=== PATIENT | female | born 1950 | race Caucasian/White ===

== ENCOUNTER 2018-05-13 07:24 | Emergency (ER) | payer OTHER, SELFPAY ==
[2018-05-13] VITALS (10 sets, daily range): BP systolic 134–167; BP diastolic 58–93; PULSE 57–74; RESP 13–21; TEMP 36.8; O2SAT 96–100; BMI 41.4
--- NOTE | 2018-05-13 07:43 | EKG12_ITS ---
Test Reason : Blood Pressure : / mmHG Vent. Rate : 065 BPM Atrial Rate : 065 BPM P-R Int : 206 ms QRS Dur : 104 ms QT Int : 418 ms P-R-T Axes : 053 037 023 degrees QTc Int : 434 ms Normal sinus rhythm Normal ECG Confirmed by RIGO CROFT, GERARDO ([id number]), general expeditor HORACE TOM ([id number]) on 05/15/2018 8:50:04 AM Referred By: FRANKLYN Confirmed By:GERARDO SIERRA MD
--- NOTE | 2018-05-13 07:45 | RAD_ITS ---
STUDY: X-RAY CHEST REASON FOR EXAM: Female, 67 years old. Chest pain TECHNIQUE: Single AP portable view of the chest. COMPARISON: None. FINDINGS: There are monitoring devices. The lungs are clear and expanded. There is no demonstrated pleural abnormality. Normal size heart. Normal mediastinum and arlyn. Normal visualized pulmonary arteries. Normal visualized aortic arch and descending thoracic aorta. Normal visualized thoracic spine. Normal visualized ribs, clavicles, and shoulders. There is no demonstrated abnormality of the visualized soft tissue structures of the upper abdomen. RAD/Chest 1 View (Portable) IMPRESSION: Normal x-ray examination of the chest. Electronically Signed: Filiberto Alarcon MD at 8:28 EST , Service support ,
[2018-05-13 07:55] LABS: Absolute Lymphocyte Count 2.02 X10^3/ul (0.83-4.51); Absolute Neutrophil Count 4.6 X10^3/uL (2.0-7.7); Basophil# 0.03 X10^3/uL; Basophil% 0.4 % (0-1); Eosinophil# 0.15 X10^3/uL; Hematocrit 43.1 % (37-47); Lymphocyte # 2.02 X10^3/ul (4.0); Lymphocyte % 26.6 % (19-41); Mean Corp Hgb Conc 32.5 g/gl (32-36); Mean Corpuscular Hgb 28.9 pg (27.0-32.0); Mean Platelet Vol. 9.4 fl (6.2-12.0); Monocyte# 0.72 X10^3/uL; Monocyte% 9.5 % (0-10); Neutrophil # 4.64 X10^3/uL (2.7-7.7); Neutrophil % 61.2 % (47-70); Platelet Count 280 K/mm3 (150-450); RBC Distribution Width CV 14.1 % (11.6-14.6); RBC Distribution Width SD 46.1 fl (35.1-43.9); Red Blood Count 4.84 M/mm3 (4.2-5.4); White Blood Count 7.6 K/mm3 (4.4-11.0)
[2018-05-13 08:00] LABS: POSITIVE COUNT NO; POSITIVE DIFFERENTIAL NO; POSITIVE MORPHOLOGY NO
[2018-05-13 08:09] LABS: Anion Gap 8 (5-15); BUN 13 mg/dL (7-18); BUN/Creat Ratio 17.7 RATIO (10-20); Calcium,Total 8.6 mg/dL (8.5-10.1); Chloride 108 mmol/L (98-107); Creatinine, Serum 0.73 mg/dL (0.55-1.02); EST Glomerular Filtration Rate 84 mL/min (>60); Est Glom Filt Rate - Afr Amer 102 mL/min (>60); Estimated Creatinine Clearance 53.81 ml/min; Glucose 92 mg/dL (74-106); Potassium 3.6 mmol/L (3.5-5.1); Sodium Level 143 mmol/L (136-145)
[2018-05-13] MEDS: Mag Hydrox/Al Hydrox/Simeth 30 ML UDC PO (08:38)
--- NOTE | 2018-05-13 08:38 | ED.RN ---
IT IS A CHALLENGE TO GET AN ANSWER FROM THE PT. I FEEL THAT SHE TRIES TO ANSWER TO WHAT SHE THINKS WE WANT HER TO SAY.
--- NOTE | 2018-05-13 08:46 | ED.DCSUM_ITS ---
- ER Visit Summary Date of Service: 05/13/18 Chief Complaint: Chest pressure radiating to upper central back History of Present Illness: The patient is a 67 F who is not a good informant. She answered what she believed I needed to now and not my questions. With read directing my questions were eventually answered. Apparently the pain started 9 days ago. It has been intermittent. It is occurring more frequently and longer duration. What concerned patient was that she was awakened from sleep at 0200. She states she had trouble breathing because of the pain. He was not diaphoretic nauseous and there was no radiation to either shoulder or either upper extremity. She has history of GERD. She states this may or may not feel like her GERD. She stated unequivocally it is not positional, related to food or related to activity. She denies history of PE or DVT. She denies any risk factors. She denies leg pain, swelling or discoloration. She denies hematemesis, melena hematochezia. She denies vomiting or diarrhea. She denies abdominal pain. She denies myalgias arthralgias. She denies headache, anesthesia, paresthesia or motor weakness. She denies urticaria or angioedema. She denies fever, chills or night sweats. She denies weight gain or weight loss. She denies any ocular, auditory or visual symptoms. Physical Examination: Blood pressure 160/93 and respiratory 21. Vital signs otherwise unremarkable. BMI is 41.4. Head is atraumatic normocephalic. Pupils are equal round reactive. Extraocular muscles are intact. TMs are pearly white with landmarks noted. Nares patent with no drainage. Posterior pharynx without erythema or exudate. Uvula is midline. There is no dysphonia or dysphasia. Trachea is midline. There is no stridor with auscultation of the neck. Heart is regular without murmur, gallop or rub. S1 and S2 are normal. Lungs are clear to auscultation with good movement of air bilaterally. There is no reproducible chest pain. Abdomen is soft nontender with no hepatospleno megaly and a negative clinical Boyle sign. There is no CVA tenderness noted. There is no palpable pulsatile mass or abdominal bruit. There is no asymmetry, swelling, discoloration, leg vein distention, palpable cords or tenderness along the distribution of the deep venous system. Neuro exam is nonfocal. Test Results: EKG with pressure is normal. Ventricular rate of 65. MA interval, QRS duration and QT interval are normal. Anna is normal. ST-T segments are normal. Portable chest x-ray reveals normal cardiac silhouette, mediastinum and lung parenchyma. Osseous structures appear normal. CBC is normal. Basic minimal panel is remarkable for chloride of 108, which is insignificant. Troponin is less than 0.015. Emergency Department Course and Treatment: Aspirin was initially ordered. This was discontinued was informed by nursing staff she took aspirin at 0200. I was informed the nitroglycerin series had no effect. A GI cocktail was ordered. Patient was reassessed at 0855. Her pain has resolved after GI cocktail. Since she has had a normal EKG episode of pain that lasted greater than 24 hours with a normal troponin and no effect after nitro presume this is secondary to her GERD. Furthermore, after talking with her she is consuming foods that she should not with history of GERD. Treatment Plan: Education regarding GERD diet Disposition: Discharged home in stable and improved condition Impression: 1. Chest pain noncardiac 2. GERD 3. High blood pressure in nonhypertensive patient This note was generated with [employer] dictation software. It may contain incorrect words, spelling, and punctuation that were not noted in review of the chart prior to signing ED Disposition - Plan for ED Patient: Disposition: Home or Assisted Living Chief Complaint: Chest Pain Instructions: ED Chest Pain NonCardiac, ED GERD Referrals: Svetlana Atkins [Primary Care Provider] - 1-2 Weeks
== END 2018-05-13 09:17 | disposition home or self-care (01) ==
PROVIDERS: Emergency Provider Emergency Medicine; Family Provider Family Medicine; PCP Family Medicine
DX: R07.89 Other chest pain (principal); K21.9 Gastro-esophageal reflux disease without esophagitis; R03.0 Elevated blood-pressure reading, without diagnosis of hypertension; E66.9 Obesity, unspecified
CPT/HCPCS: 71045; 80048; 84484; 85025; 93005; 99285

== ENCOUNTER → 2018-06-06 07:55 | Outpatient (CLI) | payer OTHER, SELFPAY ==
[2018-05-13 07:25] VITALS: BMI 41.4
--- NOTE | 2018-06-06 08:00 | BI_ITS ---
MAMMOGRAPHY - BILATERAL SCREENING REASON FOR EXAM: Female, 67 years old. Routine annual screening examination. PERTINENT HISTORY: Sisters with breast cancer. Mother with breast cancer. Grandmother with breast cancer. TECHNIQUE: Digital bilateral breast filiberto (3D mammographic acquisition) in the CC and MLO projections. 2-D mediolateral oblique (MLO) and craniocaudad (CC) views of both breasts were obtained. CAD: Full Field Digital Mammography with Computer Added Detection was performed. COMPARISON: Comparison is made with prior outside examination dated April 07, 2017. FINDINGS: Breast Composition: The breasts are almost entirely fatty. There are no dominant masses or suspicious calcifications. Stable benign-appearing bilateral axillary lymph nodes. No other significant abnormalities are identified. There has been no significant change since the prior study. BI/SCREENING MAMM (CAD), BILAT IMPRESSION: Stable bilateral screening mammogram. Yearly follow-up mammogram recommended. (A) ASSESSMENT CATEGORY: BIRADS Category 2: Benign. A letter regarding these results will be sent to the patient by the facility within 30 days. Approximately 10% of breast cancers are not detected by mammography. A normal mammogram should not delay biopsy of a clinically suspicious abnormality. [id number] Electronically Signed: Ricardo Mariano MD at 15:15 EST Tel [phone], Service support ,
== END ==
PROVIDERS: Visit Provider Obstetrics & Gynecology
DX: Z12.31 Encounter for screening mammogram for malignant neoplasm of breast (principal)
CPT/HCPCS: 77063; 77067

== ENCOUNTER → 2019-07-11 | Outpatient (CLI) | payer OTHER, SELFPAY ==
[2018-05-13 07:25] VITALS: BMI 41.4
--- NOTE | 2019-07-11 16:29 | BI_ITS ---
MAMMOGRAPHY - BILATERAL SCREENING 3-D TOMOSYNTHESIS REASON FOR EXAM: Female, 68 years old. Routine screening PERTINENT HISTORY: Strong family history with sister, mother and grandmother. TECHNIQUE: 2-D mammograms and 3-D Tomosynthesis of the breast (s) were performed. CAD was performed. COMPARISON: 06/06/2018 FINDINGS: The breast composition is almost entirely fat. Scattered benign calcifications are seen. No dense spiculated masses or suspicious microcalcifications are identified. No architectural distortion is identified. There is no skin thickening or retraction. There has been no significant change since the prior study. BI/SCREEN MAMM (CAD) W/BROOKLYNN BILAT IMPRESSION: No mammographic signs of malignancy. Routine yearly mammograms recommended. ASSESSMENT CATEGORY: BIRADS Category 1: Negative. A letter regarding these results will be sent to the patient by the facility within 30 days. FOLLOW UP RECOMMENDATION: Yearly follow up mammogram recommended. (A) Approximately 10% of breast cancers are not detected by mammography. A normal mammogram should not delay biopsy of a clinically suspicious abnormality. Electronically Signed: Jay Galarza MD at 12:58 EST , Service support ,
== END | disposition home or self-care (01) ==
PROVIDERS: Referring Provider Obstetrics & Gynecology; Visit Provider Obstetrics & Gynecology
DX: Z12.31 Encounter for screening mammogram for malignant neoplasm of breast (principal)
CPT/HCPCS: 77063; 77067

== ENCOUNTER → 2020-07-13 16:13 | Outpatient (CLI) | payer OTHER, SELFPAY ==
[2018-05-13 07:25] VITALS: BMI 41.4
--- NOTE | 2020-07-13 16:20 | BI_ITS ---
MAMMOGRAPHY - BILATERAL SCREENING REASON FOR EXAM: Female, 69 years old. Routine annual screening examination. PERTINENT HISTORY: Sisters with breast cancer. Grandmother with breast cancer. Aunt with breast cancer. TECHNIQUE: Digital bilateral breast brooklynn (3D mammographic acquisition) in the CC and MLO projections. 2-D mediolateral oblique (MLO) and craniocaudad (CC) views of both breasts were obtained. CAD: Full Field Digital Mammography with Computer Added Detection was performed. COMPARISON: Comparison is made with prior study dated 07/11/2019 and 06/06/2018. FINDINGS: Breast Composition: The breasts are almost entirely fatty. There are no dominant masses or suspicious calcifications. Stable benign-appearing bilateral axillary lymph nodes. No other significant abnormalities are identified. There has been no significant change since the prior study. BI/SCRN MAMM (CAD)W/BROOKLYNN BILAT IMPRESSION: Stable bilateral screening mammogram. Yearly follow-up mammogram recommended. (A) ASSESSMENT CATEGORY: BIRADS Category 2: Benign. A letter regarding these results will be sent to the patient by the facility within 30 days. Approximately 10% of breast cancers are not detected by mammography. A normal mammogram should not delay biopsy of a clinically suspicious abnormality. [id number] Electronically Signed: Ricardo Mariano MD at 8:42 EST , Service support ,
== END ==
PROVIDERS: Referring Provider Obstetrics & Gynecology; Visit Provider Obstetrics & Gynecology
DX: Z12.31 Encounter for screening mammogram for malignant neoplasm of breast (principal)
CPT/HCPCS: 77063; 77067

== ENCOUNTER → 2021-05-10 17:05 | Outpatient (CLI) | payer SELFPAY ==
--- NOTE | 2021-05-10 17:25 | MRI_ITS ---
STUDY: MR Spine Lumbar W/O Contrast 05/11/2021 5:44 PM REASON FOR EXAM: Female, 70 years old. Back pain DDD TECHNIQUE: MR Spine Lumbar W/O Contrast Standardized fat and water weighted pulse sequences were obtained. COMPARISON: None FINDINGS: T12-L1: T12 vertebral body hemangioma. Normal lumbar lordosis. There is no substantial scoliosis. Normal conus medullaris that terminates at the L1 . TARLOV cyst at S1 and S2. L1-2: Loss of intervertebral disc height. There is endplate spondylosis of the vertebral body. Narrowing of the right intervertebral neuroforamina. Mild compression of exiting right L1 nerve root. There is bilateral facet arthropathy. There is bilateral ligamentum flavum thickening. Posterior disc bulge. L2-3: Loss of intervertebral disc height. There is endplate spondylosis of the vertebral body. Normal central canal and intervertebral neuroforamina. There is bilateral facet arthropathy. There is bilateral ligamentum flavum thickening. Posterior disc bulge. L3-4: Loss of intervertebral disc height. There is endplate spondylosis of the vertebral body. Narrowing of the left intervertebral neuroforamina. Compression of exiting left L3 nerve root. There is bilateral facet arthropathy. There is bilateral ligamentum flavum thickening. Posterior disc bulge. L4-5: Loss of intervertebral disc height. There is endplate spondylosis of the vertebral body. Normal central canal and intervertebral neuroforamina. There is bilateral facet arthropathy. There is bilateral ligamentum flavum thickening. Posterior disc bulge. L5-S1: Loss of intervertebral disc height. There is endplate spondylosis of the vertebral body. There is bilateral facet arthropathy. Narrowing of the right intervertebral neuroforamina. Compression of exiting right L5 nerve root. Disc desiccation. Normal visualized sacral ala. Normal visualized paraspinous soft tissue structures. MRI/Spine Lumbar (Routine) IMPRESSION: Multilevel degenerative changes, as described above. Electronically Signed: Toño Patton MD at 17:48 EST , Service support ,
== END ==
DX: M99.03 Segmental and somatic dysfunction of lumbar region (principal); M51.36 Other intervertebral disc degeneration, lumbar region
CPT/HCPCS: 72148

== ENCOUNTER 2021-07-14 11:18 | Outpatient (CLI) | payer MEDICARE, OTHER, SELFPAY ==
--- NOTE | 2021-07-14 11:28 | BI_ITS ---
MAMMOGRAPHY - BILATERAL SCREENING REASON FOR EXAM: Female, 70 years old. Routine annual screening examination. PERTINENT HISTORY: Sisters with breast cancer. Aunt with breast cancer. TECHNIQUE: Digital bilateral breast brooklynn (3D mammographic acquisition) in the CC and MLO projections. 2-D mediolateral oblique (MLO) and craniocaudad (CC) views of both breasts were obtained. CAD: Full Field Digital Mammography with Computer Added Detection was performed. COMPARISON: Comparison is made with prior study dated 07/13/2020 and 07/11/2019. FINDINGS: Breast Composition: The breasts are almost entirely fatty. There are no dominant masses or suspicious calcifications. Stable small benign-appearing bilateral axillary lymph nodes. No other significant abnormalities are identified. There has been no significant change since the prior study. BI/SCRN MAMM (CAD)W/BROOKLYNN BILAT IMPRESSION: Stable bilateral screening mammogram. Yearly follow-up mammogram recommended. (A) ASSESSMENT CATEGORY: BIRADS Category 2: Benign. A letter regarding these results will be sent to the patient by the facility within 30 days. Approximately 10% of breast cancers are not detected by mammography. A normal mammogram should not delay biopsy of a clinically suspicious abnormality. [id number] Electronically Signed: Ricardo Mariano MD at 13:01 EST ,
--- NOTE | 2021-07-14 11:32 | BD_ITS ---
STUDY: DUAL ENERGY X-RAY ABSORPTIOMETRY / DXA REASON FOR EXAM: Female, 70 years old. [id number]. Patient is postmenopausal. TECHNIQUE: Bone Mineral Density (BMD) measurements of lumbar spine and bilateral hips were obtained. COMPARISON: None. FINDINGS: Lumbar Spine (L1-L4): g/cm2 (0.815) / T-score (-2.2) / Z-score (-0.1) Findings are suggestive of osteopenia with a moderate fracture risk. Left Femur Total: g/cm2 (0.885) / T-score (-0.5) / Z-score (1.0) Left Femoral Neck: g/cm2 (0.698) / T-score (-1.4) / Z-score (0.4) Right Femur Total: g/cm2 (0.931) / T-score (-0.1) / Z-score (1.4) Right Femoral Neck: g/cm2 (0.747) / T-score (-0.9) / Z-score (0.9) BD/Dexa Bone Density Study IMPRESSION: The patient is considered osteopenic as outlined below according to World [place] Organization (WHO) criteria with a moderate fracture risk. Reference Information: The T-score is the number of standard deviations above or below the standard which is normal for young adults at their peak bone mineral density. The World Health Organization (WHO) interprets the T-scores as follows: Above -1 Normal bone density Between -1 and -2.5 Osteopenia Equal to / or below -2.5 Osteoporosis As a practical clinical guideline, osteopenia may be graded as follows: Mild -1 through -1.5 Moderate -1.6 through -2.0 Severe -2.1 through -2.4 The Z-score is the number of standard deviations above or below age-matched controls. A Z-score of less than -1.5 would be considered abnormal. References: 1. NIH Osteoporosis and Related Bone Diseases www osteo.org 2. International Society for Clinical Densitometry www iscd.org 3. National Osteoporosis Foundation www nof.org Electronically Signed: Ricardo Mariano MD at 10:32 EST ,
== END 2021-07-14 23:59 | disposition home or self-care (01) ==
PROVIDERS: PCP Family Medicine; Referring Provider Family Medicine; Visit Provider Family Medicine
DX: Z12.31 Encounter for screening mammogram for malignant neoplasm of breast (principal); Z78.0 Asymptomatic menopausal state
CPT/HCPCS: 77063; 77067; 77080